=== PATIENT | female | born 1930 | race Caucasian/White ===

== ENCOUNTER 2016-04-02 21:20 | Emergency (ER) | payer OTHER ==
[2016-04-02] MEDS ORDERED: MORPHINE IV ONE ×2 (21:38→22:24)
[2016-04-02] MEDS ORDERED: ZOFRAN IV ONE (21:39)
--- NOTE | 2016-04-02 22:08 | PROVIDER DOCUMENTATION ---
HPI-Musculoskeletal Pain/Inj - GENERAL Chief Complaint: Fall Stated Complaint: fall Time Seen by Provider: 04/02/16 21:32 Source: patient - HX OF PRESENT ILLNESS-MUSKULOSKELTAL Nature of Presenting Problem: 85 year old F presents to the ED with a cc of a fall. PT states that she fell around 1800 landing on right forearm. PT c/o pain to forearm. PT states that after she fell she vomited x1. PT took Tylenol for the pain [employer]. Quality of Pain: reports: aching Severity in ED: mild Onset/Duration: 1-3 hours ago Timing: still present Modifying Factors: improves with: nothing Any recent injury?: Yes (fall) Locality of Occurance: Home Similar Symptoms Previously?: No Recently seen or treated by another doctor?: No - FALL INJURY Location of Pain/Injury: reports: face, upper extremity Pain Radiation: reports: no radiation Reason for Fall: reports: lost balance Symptoms prior to fall:: reports: none Review of Systems - Adult - REVIEW OF SYSTEMS - ADULT Constitutional: denies: chills, fever Eyes: reports: no symptoms reported Ears, Nose, Mouth & Throat: reports: no symptoms reported Cardiovascular: denies: chest pain, palpitations Respiratory: denies: cough, shortness of breath Gastrointestinal: reports: nausea, vomiting. denies: abdominal pain Genitourinary: reports: no symptoms reported Musculoskeletal: reports: bone pain. denies: muscle weakness Integumentary: denies: skin sores/ulcer, skin thickening Neurological: denies: seizure, syncope Psychiatric: reports: no symptoms reported Endocrine: reports: no symptoms reported Hematologic/Lymphatic: reports: no symptoms reported Allergic/Immunologic: reports: no symptoms reported All Other Systems: Reviewed and Negative Past History - Adult - PAST MEDICAL HISTORY-ADULT Review of Records: reports: Nursing Assessment Review, Medications Reviewed Major Childhood Illnesses: reports: denies history Cardiovascular: reports: HTN Other Conditions: reports: skin disorder (requiring steroids), other (steroid dependent) - PRIOR SURGERIES/PROCEDURES Surgical/Procedure History: reports: other (D&C) - IMMUNIZATION STATUS Childhood Immunizations: See Nurse Assessment Flu Vaccine: See Nurse Assessment - SOCIAL HISTORY Smoking: non-smoker Substance Use: none/never Alcohol Use Frequency: never Physical Exam-Injury Related - Physical Exam-Injury Related Initial Vital Signs Reviewed: Yes General Appearance: appears well, alert, no apparent distress Head, Ears, Nose, Mouth & Throat: other (eccymosis right lateral eye) Neck: non-tender, full range of motion, supple, normal inspection Respiratory: chest non-tender, lungs clear, normal breath sounds Cardiovascular: normal peripheral pulses, regular rate, rhythm, no edema Extremity: tenderness (right forearm with tenderness and eccymosis) Integumentary: ecchymosis Progress - PLAN OF CARE/RESULTS Progress/Plan/Lab Results: plan of care: imaging, medications, splinting Orders Category Date Time Status FOREARM-RIGHT [RAD] Stat Exams 04/02/16 21:39 Taken HEAD W/O CONTRAST [CT] Stat Exams 04/02/16 21:39 Taken Morphine Med 04/02/16 21:38 Discontinued 4 mg IV NOW ONE Morphine Med 04/02/16 22:24 Discontinued 4 mg IV NOW ONE Ondansetron [Zofran] Med 04/02/16 21:39 Discontinued 4 mg IV NOW ONE Vital Signs - 24 hr 04/02/16 21:25 Temperature 98.7 F Pulse Rate 86 Respiratory 20 Rate Blood Pressure 137/77 O2 Sat by Pulse 92 L Oximetry Pt given results and will be d/c home w/ rx to follow up with PCP. Pt verbally understood instructions. PT remained clinically stable throughout the course of the ED stay and will return if symptoms worsen. - XRAY 1 XRAY: Right XRAY Study: Forearm Impression: Abnormal XRAY Interpretation: proximal ulnar fracture with displacement: Dr. Esparza - CT/MRI 1 CT Study: Head Impression: Normal (chronic ischemic changes and atrophy. no changes since 2015) Procedures - SPLINTING Right Upper Extremity Pre-Procedure Neurovascular Exam: Intact Splint Application (Hand-Made): Posterior OCL Applied By: ED Physician Assisted By: resort manager Post Procedure Neurovascular Exam: Intact Departure - Departure Time of Disposition Order: 22:41 DIAGNOSIS: Head contusion Qualifiers: Encounter type: initial encounter Contusion of head detail: periocular area Laterality: right Qualified Code(s): S00.11XA - Contusion of right eyelid and periocular area, initial encounter Fracture of right proximal ulna Qualifiers: Encounter type: initial encounter Fracture type: closed Fracture morphology: unspecified fracture morphology Qualified Code(s): S52.001A - Unspecified fracture of upper end of right ulna, initial encounter for closed fracture Disposition: HOME 01 Certified Medical Emergency: Emergent Condition: Good Additional Instructions: Follow up with primary care doctor. Return to ED for any new or worsening symptoms ED Follow Up Instructions: You have been treated by a care provider in the Emergency Department. These instructions are being provided to you so you can have an understanding of how to care for yourself upon discharge. Upon discharge from the Emergency Department, you are responsible for making arrangements for follow-up care by a physician of your choice. Take all prescribed medications as directed. Return to the Emergency Department immediately for any new or worsening symptoms. You may call the Physician Referral phone number at [phone] to obtain a list of Physicians who are taking new patients. Referrals: Jose G Luis MD [Primary Care Provider] - Attestation - Scribe Verification/Attestation Scribe:: Cordelia Caballero Acting as Scribe for:: Todd Esparza Scribe documention review:: This chart was documented by a scribe and accurately reflects the service the provider performed and the decisions made by the provider. Physician Attestation - Physician Attestation I, the provider, attest to the following statement:: Todd Esparza Physician documentation Attestation:: This documentation recorded by the scribe accurately reflects the service I personally performed and the decisions made by me.
[2016-04-03] MEDS ORDERED: NORCO-7.5 PO ONE (00:02)
[2016-04-03 00:42] VITALS: BP 115/96
--- NOTE | 2016-04-03 08:21 | Diag Imaging Result Document ---
PROCEDURE NAME: FOREARM-RIGHT - 04/02/2016 RIGHT FOREARM TWO VIEWS: FINDINGS: There is a fracture of the proximal ulna which is just distal to the coronoid process. There is also an impacted fracture of the radial head. Some generalized osteopenia is present. IMPRESSION: Fracture proximal radius and ulna.
--- NOTE | 2016-04-03 10:02 | Diag Imaging Result Document ---
PROCEDURE NAME: HEAD W/O CONTRAST - 04/02/2016 CT HEAD WITHOUT CONTRAST: COMPARISON: 08/16/2015. 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 There is no definite acute infarct given the limited sensitivity of CT versus MRI. There is extremely subtle high attenuation overlying the right frontal lobe laterally in the extra-axial space. Although this could be easily represent artifact given its very small size, a trace subdural hematoma cannot completely be excluded. If so, there is no appreciable mass effect. The collection measures only about 2.5 mm in thickness. There is no midline shift. No other discrete intracranial mass, mass effect, or intracranial hemorrhage is appreciated. There is no evidence of hydrocephalus. There is very subtle soft-tissue edema lateral to the right orbit indicating a soft-tissue contusion. The calvaria is grossly intact. IMPRESSION: 1. Findings suggesting trace subdural hematoma overlying the right frontal lobe as described. If needed, this could be confirmed with MRI or perhaps a repeat CT. 2. Other chronic intracranial changes that are stable as described. 3. This result was reported to the charge nurse in the emergency department at 0938 hours. MAR[facility] HOSPITALIesha
== END 2016-04-03 00:41 | disposition home or self-care (01) ==
LOC: EDBD → ED 21:20
DX: S52.121A Displaced fracture of head of right radius, initial encounter for closed fracture (principal); S52.091A Other fracture of upper end of right ulna, initial encounter for closed fracture; S00.11XA Contusion of right eyelid and periocular area, initial encounter; S50.11XA Contusion of right forearm, initial encounter; M79.631 Pain in right forearm; R12 Heartburn; I10 Essential (primary) hypertension; Z87.2 Personal history of diseases of the skin and subcutaneous tissue; W19.XXXA Unspecified fall, initial encounter
CPT/HCPCS: 70450; 96374; 96375; 96376; J2270; J2405